=== PATIENT | female | born 1945 | race Caucasian/White ===

== ENCOUNTER 2017-04-15 07:40 | Emergency (ER) | payer OTHER ==
[2017-04-15 07:51] VITALS: BP 131/65; PULSE 80; RESP 16; TEMP 97.7; O2SAT 97
--- NOTE | 2017-04-15 08:09 | EDPHY ---
H & P Stated Complaint: bilateral eyes red and puffy Time Seen by Provider: 04/15/17 08:01 HPI/ROS: CHIEF COMPLAINT: Conjunctivitis HISTORY OF PRESENT ILLNESS: Patient is a 72-year-old female comes to the emergency department complaining of pink right eye with yellowish discharge. She 1st noticed it this morning. She has not had a fever. She has not had any vision changes. She denies headache. No foreign body sensation or pain. It is itchy. REVIEW OF SYSTEMS: Constitutional: denies: chills, fever, recent illness, recent injury EENTM: See HPI Respiratory: denies: cough, shortness of breath Cardiac: denies: chest pain, irregular heart rate, lightheadedness, palpitations Gastrointestinal/Abdominal: denies: abdominal pain, diarrhea, nausea, vomiting, blood streaked stools Genitourinary: denies: dysuria, frequency, hematuria, pain Musculoskeletal: denies: joint pain, muscle pain Skin: denies: lesions, rash, jaundice, bruising Neurological: denies: headache, numbness, paresthesia, tingling, dizziness, weakness Hematologic/Lymphatic: denies: blood clots, easy bleeding, easy bruising Immunologic/allergic: denies: HIV/AIDS, transplant EXAM: GENERAL: Well-appearing, well-nourished and in no acute distress. HEAD: Atraumatic, normocephalic. EYES: Right conjunctiva injected, minimal injection in left conjunctiva. No visible foreign body. Normal visual acuity. No visible abrasions. Pupils equal round and reactive to light, extraocular movements intact, sclera anicteric ENT: TMs normal, nares patent, oropharynx clear without exudates. Moist mucous membranes. NECK: Normal range of motion, supple without lymphadenopathy or JVD. LUNGS: Breath sounds clear to auscultation bilaterally and equal. No wheezes rales or rhonchi. HEART: Regular rate and rhythm without murmurs, rubs or gallops. ABDOMEN: Soft, nontender, normoactive bowel sounds. No guarding, no rebound. No masses appreciated. BACK: No CVA tenderness, no spinal tenderness, step-offs or deformities EXTREMITIES: Normal range of motion, no pitting or edema. No clubbing or cyanosis. NEUROLOGICAL: Cranial nerves II through XII grossly intact. Normal speech, normal gait. 5/5 strength, normal movement in all extremities, normal sensation PSYCH: Normal mood, normal affect. SKIN: Warm, dry, normal turgor, no visible rashes or lesions. Source: Patient Exam Limitations: No limitations - Medical/Surgical History Hx Asthma: No Hx Chronic Respiratory Disease: No Hx Diabetes: No Hx Cardiac Disease: No Hx Renal Disease: No Hx Cirrhosis: No Hx Alcoholism: No Hx HIV/AIDS: No Hx Splenectomy or Spleen Trauma: No Other PMH: peptic ulcer, appy, colecystectomy, - Family History Significant Family History: No pertinent family hx - Social History Smoking Status: Never smoked Alcohol Use: Sober Drug Use: None Constitutional: Initial Vital Signs Temperature (C) 36.5 C 04/15/17 07:46 Heart Rate 80 04/15/17 07:46 Respiratory Rate 16 04/15/17 07:46 Blood Pressure 131/65 H 04/15/17 07:46 O2 Sat (%) 97 04/15/17 07:46 O2 Delivery Mode Room Air Allergies/Adverse Reactions: NSAIDS (Non-Steroidal Anti-Inflamma [Nsaids] Allergy (Verified 09/15/11 19:33) GI BLD Home Medications: Medication Instructions Recorded Multivitamins 03/08/10 Ofloxacin 0.3% [Ocuflox 0.3%] 2 drops OP QID #1 opht.btl 04/15/17 Medical Decision Making ED Course/Re-evaluation: The patient's exam is consistent with conjunctivitis. She does not have any pain or vision changes. I will start her on Ocuflox. We discussed dosing and providing spread of the infection. She understands and agrees with this plan. We discussed indications for returning. Differential Diagnosis: Partial list of the Differential diagnosis considered include but were not limited to; conjunctivitis, allergic conjunctivitis, foreign body and although unlikely based on the history and physical exam, I also considered glaucoma, retinal detachment, ischemia, temporal arteritis. I discussed these differential diagnoses and the plan with the patient as well as the usual and expected course. The patient understands that the diagnosis is provisional and that in medicine we are not always correct and that further workup is often warranted. Usual and customary warnings were given. All of the patient's questions were answered. The patient was instructed to return to the emergency department should the symptoms at all worsen or return, otherwise to followup with the physician as we discussed. Departure - Departure Disposition: Home, Routine, Self-Care Clinical Impression: Acute conjunctivitis of both eyes Qualifiers: Acute conjunctivitis type: bacterial Qualified Code(s): H10.33 - Unspecified acute conjunctivitis, bilateral Condition: Good Instructions: Conjunctivitis (ED) Referrals: KIMMIE PALOMARES [Primary Care Provider] - As per Instructions Prescriptions: Ofloxacin 0.3% [Ocuflox 0.3%] 2 drops OP QID #1 opht.btl
== END 2017-04-15 08:17 | disposition home or self-care (01) ==
LOC: CED 07:40
DX: H10.33 Unspecified acute conjunctivitis, bilateral (principal)